=== PATIENT | female | born 1990 | race Caucasian/White ===

== ENCOUNTER 2020-12-05 19:01 | Emergency (ER) | payer MEDICAID, OTHER ==
[~2020-12-05] VITALS: Ht 149.9 cm; Wt 104.3 kg
[2020-12-05 19:45] VITALS: BP 129/71
[2020-12-05] MEDS ORDERED: IBUP-1957 PO (20:26)
[2020-12-05] MEDS ORDERED: CYCL5TAB PO (20:26)
[2020-12-05] MEDS ORDERED: PRED50TA PO (20:26)
== END 2020-12-05 20:33 | disposition home or self-care (01) ==
LOC: ER 19:01
DX: M62.838 Other muscle spasm (principal); R20.0 Anesthesia of skin; F41.9 Anxiety disorder, unspecified; F32.9 Major depressive disorder, single episode, unspecified; J45.909 Unspecified asthma, uncomplicated; Z79.899 Other long term (current) drug therapy

== ENCOUNTER 2020-12-08 21:32 | Emergency (ER) | payer MEDICAID ==
[~2020-12-08] VITALS: Ht 149.9 cm; Wt 104.3 kg
[~2020-12-08 21:32] MED LIST: CYCL5TAB PO; IBUP-1957 PO; PRED50TA PO
--- NOTE | 2020-12-08 21:35 | NUR ---
PATIENT BIBSELF STATING SHE WOKE UP 30MINS AGO, FELT "CHEST GETTING TIGHT" STATES SHE FEELS SHES IS HAVING A PANIC ATTACK. PT A/OX 4, RR EVEN AND UNLABORED. PT IN NO SIGNS OF ACUTE DISTRESS. WILL CONTINUE TO MONIOTR.
--- NOTE | 2020-12-08 22:49 | NUR ---
Patient discharged to home in stable condition. Written and verbal after care instructions given. Patient verbalizes understanding of instruction. ambulatory with a steady gait
[2020-12-08 23:01] VITALS: BP 124/56
== END 2020-12-08 23:02 | disposition home or self-care (01) ==
LOC: ER 21:32
DX: F41.9 Anxiety disorder, unspecified (principal); J45.909 Unspecified asthma, uncomplicated; Z79.899 Other long term (current) drug therapy